=== PATIENT | female | born 1985 | race Caucasian/White ===

== ENCOUNTER → 2024-06-08 14:46 | Outpatient (REF) | payer BC, SELFPAY | LOC: HWRAD 14:46 | PROVIDERS: ATTENDING PHYSICIAN Family Medicine; OTHER PHYSICIAN Family Medicine | DX: R51.9 Headache, unspecified (principal); H35.09 Other intraretinal microvascular abnormalities | CPT/HCPCS: 70450 ==

== ENCOUNTER → 2024-10-13 14:34 | Outpatient (REF) | payer BC, SELFPAY | LOC: RAD 14:34 | PROVIDERS: ATTENDING PHYSICIAN Family Medicine; FAMILY PHYSICIAN Family Medicine | DX: R05.3 Chronic cough (principal) | CPT/HCPCS: 71046 ==

== ENCOUNTER → 2025-06-21 14:56 | Outpatient (REF) | payer BC, SELFPAY | LOC: PAVMRI 14:56 | PROVIDERS: ATTENDING PHYSICIAN Family Medicine | DX: M54.12 Radiculopathy, cervical region (principal) | CPT/HCPCS: 72141 ==

== ENCOUNTER → 2025-07-01 08:00 | Outpatient (REF) | payer BC, SELFPAY | LOC: HWRAD 08:00 | PROVIDERS: ATTENDING PHYSICIAN Otolaryngology; FAMILY PHYSICIAN Family Medicine; REFERRING PHYSICIAN Internal Medicine Hematology & Oncology | DX: R59.0 Localized enlarged lymph nodes (principal) | CPT/HCPCS: 70490 ==